=== PATIENT | male | born 1940 | race Caucasian/White ===

== ENCOUNTER 2022-06-12 11:59 | Inpatient (IN) | payer MEDICARE, SELFPAY ==
--- NOTE | ~2022-06-12 | XR_ITS ---
EXAMINATION: XR surgery orthopedic DATE: 06/14/2022 14:48 INDICATION: Proximal right femur fracture TECHNIQUE: 3 fluoroscopic images of the right hip were obtained during procedure performed by Dr. Adrian cobb. Radiologist was not present for the imaging or procedure. The amount of fluoroscopy time used d uring this procedure was 0.9 minutes. COMPARISON: Pelvis radiographs dated 06/12/2022 FINDINGS: Interval fixation of a subcapital fracture of the proximal right femur with 3 cannulated lag screws w hich are in expected position with the distal tips not projecting beyond the articular cortical trina n. Alignment remains near-anatomic with unchanged mild lateral impaction. Mild osteoarthritis at the right hip. No new fractures identified. IMPRESSION: 1. Near-anatomic alignment post plate-screw fixation of a subcapital fracture of the proximal right f emur. Reviewed, dictated and finalized at location A. IMPRESSION: 1. Near-anatomic alignment post plate-screw fixation of a subcapital fracture o f the proximal right femur.
--- NOTE | ~2022-06-12 | CT_ITS ---
EXAMINATION: CT brain wo con DATE: 06/12/2022 14:16 INDICATION: Fall with head and neck injury TECHNIQUE: Computed tomography (CT) of the head was performed without intravenous contrast. Sagittal and coronal reconstructions were performed. The mA was adjusted according to patient size. Iterative reconstruction technique was employed. The dose-length product was 1286.33 mGy-cm. COMPARISON: None FINDINGS: 1 computed patient resulting in the significant motion artifact on the initial sequence. Imaging was repeated twice again with motion artifact but in different locations resulting in adequate imaging of the entire brain on at least one of the 3 sequences of imaging. No fracture. No acute intracranial hemorrhage, acute infarction or abnormal extra axial fluid collect ion. There is mild scattered white matter hypoattenuation consistent with chronic small vessel ischem ic disease. Symmetric prominence of the sulci and ventricles consistent with mild to moderate age-sukh ropriate diffuse cerebral volume loss. No mass/mass effect. Mild mucosal thickening the bilateral eth moid sinuses. The orbits and mastoid air cells are normal. Intracranial calcified cerebral atheroscle rosis is noted. IMPRESSION: 1. No fracture or acute intracranial process. 2. Age-related changes including mild to moderate diffuse volume loss and mild scattered white matter hypoattenuation consistent with chronic small vessel ischemic disease. Reviewed, dictated and finalized at location A. IMPRESSION: 1. No fracture or acute intracranial process. 2. Age-related changes including mild to moderate diffuse volume loss and mild scattered white matter hypoattenuation consistent with chronic small vessel isc hemic disease.
--- NOTE | ~2022-06-12 | XR_ITS ---
EXAMINATION: XR pelvis 1-2V DATE: 06/12/2022 14:16 INDICATION: Hip pain post fall TECHNIQUE: An anteroposterior view of the pelvis was obtained. COMPARISON: None. FINDINGS: Nondisplaced transcervical fracture of the proximal right femur with some lateral impaction resulting in mild valgus angulation. No other fractures identified. Mild bilateral hip osteoarthritis. Moderat e bilateral sacral iliac osteoarthritis. Suture line in the right lower quadrant of the abdomen. Larg e ball of stool at the rectum consistent with fecal impaction. IMPRESSION: 1. Mild lateral angulation and impaction of a nondisplaced transcervical fracture of the proximal rig ht femur Reviewed, dictated and finalized at location A. IMPRESSION: 1. Mild lateral angulation and impaction of a nondisplaced transcervical fractu re of the proximal right femur
--- NOTE | ~2022-06-12 | CT_ITS ---
EXAMINATION: CT cervical spine wo con DATE: 06/12/2022 14:16 INDICATION: Head and neck injury post fall. TECHNIQUE: Computed tomography (CT) of the cervical spine was performed without intravenous contrast. Automated exposure control and iterative reconstruction technique were employed. The dose-length pro duct was 363.45 mGy-cm. COMPARISON: None FINDINGS: Mild lower cervical levocurvature. Sagittal alignment is normal. Vertebral body heights are normal. M oderate disc height loss at C5-C6 and C6-C7. Mild disc height loss at the remaining cervical levels. Multilevel moderate to severe cervical uncovertebral osteoarthritis. Severe facet osteoarthritis on t he left at C2-C3 through C3-C4 and bilaterally at T2-T3. Mild to moderate facet osteoarthritis at the remainder of the cervical and visualized upper thoracic spine. Disc bulges at C4-C5 and posterior di sc osteophyte complexes at C5-C6 and C6-C7 resulting in mild central canal stenosis. Moderate neural foraminal stenosis on the left at C3-C4 and mild neural foraminal stenosis at a few additional levels on both the left and right. Likely benign 1.3 cm left thyroid nodule. Calcified inferior left jugula r chain lymph nodes consistent with old granulomatous disease. Cervical soft tissues are otherwise un remarkable. IMPRESSION: 1. Moderate cervical spondylosis. No acute osseous abnormalities. Reviewed, dictated and finalized at location A.
--- NOTE | ~2022-06-12 | XR_ITS ---
EXAMINATION: XR hip RT min 2V DATE: 06/12/2022 13:18 INDICATION: Right hip pain post fall TECHNIQUE: Anteroposterior and cross-table lateral views of the right hip were obtained. COMPARISON: None. FINDINGS: Transcervical fracture of the proximal right femur with mild posterolateral angulation with mild asso ciated posterolateral impaction. Right femoral head remains normally located in the right acetabulum with mild osteoarthritis. Moderate osteoarthritis at the bilateral sacroiliac joints. Suture line in the right lower quadrant and surgical clip in the left lower quadrant. 9 cm ball of stool at the rect um. IMPRESSION: 1. Mildly impacted nondisplaced transcervical fracture of the proximal right femur with mild posterol ateral angulation. Reviewed, dictated and finalized at location A. IMPRESSION: 1. Mildly impacted nondisplaced transcervical fracture of the proximal right fe mur with mild posterolateral angulation.
--- NOTE | ~2022-06-12 | XR_ITS ---
EXAMINATION: XR chest 1V DATE: 06/12/2022 13:18 INDICATION: Fall. Chest pain. TECHNIQUE: AP view of the chest was obtained. COMPARISON: None FINDINGS: Calcified nodule at the left lung base consistent with old granulomatous disease. No other airspace o pacities, pulmonary edema, pleural effusion or pneumothorax. The cardiomediastinal silhouette is norm al. Cholecystectomy clips in right upper quadrant. IMPRESSION: 1. No acute cardiopulmonary disease. Reviewed, dictated and finalized at location A.
[2022-06-12 12:06] VITALS: BP 137/85; PULSE 104; RESP 14; TEMP 36.9; O2SAT 97
--- NOTE | 2022-06-12 13:28 | ED.FALL ---
HPI - Fall General Chief Complaint: Fall Stated Complaint: Fall, R hip pain Time Seen by Provider: 06/12/22 13:21 History of Present Illness HPI Narrative: Patient states that he was eating a banana, dropped the peel the ground, and slipped on it and landed on his hip, he is endorsing pain in his right hip. Denies any pain anywhere else. I spoke with his family and they inform me there were no banana peels anywhere in the vicinity (though he does love bananas), they had stopped at his house and found him on the ground; they had seen him earlier in the day so are sure he hadn't been on the ground for very long. Unsure how or why he fell. Related Data Home Medications Medication Instructions Recorded Confirmed amlodipine 10 mg tablet 10 mg PO DAILY 11/16/20 03/22/21 atorvastatin 10 mg tablet 10 mg PO DAILY 11/16/20 03/22/21 cyanocobalamin (vitamin B-12) 1,000 mcg PO DAILY 11/16/20 03/22/21 1,000 mcg capsule donepezil 5 mg tablet 5 mg PO QHS 11/16/20 03/22/21 levothyroxine 50 mcg capsule 50 mcg PO DAILY 11/16/20 03/22/21 olanzapine 2.5 mg tablet 2.5 mg PO DAILY 11/16/20 03/22/21 famotidine 20 mg tablet 20 mg PO DAILY 03/22/21 03/22/21 loratadine 10 mg capsule 10 mg PO DAILY 03/22/21 03/22/21 psyllium husk 0.4 gram capsule 0.4 g PO DAILY 03/22/21 03/22/21 (Metamucil) Allergies Allergy/AdvReac Type Severity Reaction Status Date / Time Penicillins Allergy Intermediate Hives Verified 09/22/21 14:33 Macrolide Antibiotics AdvReac Unknown Hives / Verified 09/22/21 14:33 Red Face Review of Systems Review of Systems: CONST: No fever. HEENT: No sore throat C/V: No chest pain RESP: No cough GI: No nausea/vomiting : No dysuria. 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 NECK: No midline neck tenderness EYES: EOMI, conjunctiva normal ENT: Hearing grossly intact LUNGS: Nonlabored breathing. HEART: [Regular rate and rhythm] ABD: [Soft], [nontender to palpation] EXT: Normal DP pulses bilaterally, pain with palpation to right hip. No tenderness to any other extremity and full ROM SKIN: Abrasions to right elbow NEURO: [Alert. No gross focal sensory or strength deficits.] PSYCH: Normal affect, extremely pleasant Course Vital Signs Vital signs: Vital Signs Temperature 98.5 F 06/12/22 12:06 Pulse Rate 104 H 06/12/22 12:06 Respiratory Rate 14 06/12/22 12:06 Blood Pressure 137/85 06/12/22 12:06 Pulse Oximetry 97 06/12/22 12:06 Temperature 98.5 F 06/12/22 12:06 Pulse Rate 88 06/12/22 15:02 Respiratory Rate 16 06/12/22 15:02 Blood Pressure 136/84 06/12/22 15:02 Pulse Oximetry 99 06/12/22 15:02 MDM - Fall MDM Narrative Medical decision making narrative: 82-year-old male presents after a witnessed fall, he is endorsing pain in his right hip, vital signs stable and he does have tenderness to the right hip, x-ray does show a fracture, I did obtain full work-up to rule out any possible causes for fall and to rule out any further injuries and these are negative. Discussed with the patient, his family at bedside, the orthopedic surgeon on-call, and the hospitalist for admission. Lab Data Result diagrams: 06/12/22 13:51
--- NOTE | 2022-06-12 13:33 | ECG_ITS ---
Measurements Intervals [place] Rate: 69 P: 75 MO: 192 QRS: 75 QRSD: 120 T: 68 QT: 415 QTc: 448 Interpretive Statements SINUS RHYTHM RIGHT BUNDLE BRANCH BLOCK [120+ ms QRS DURATION, UPRIGHT V1, 40+ ms S IN I/aVL/V4/V5/V6] NO PREVIOUS ECG AVAILABLE FOR COMPARISON Electronically Signed On 06-12-2022 19:49:45 CDT by Lela Cervantes M.D.
[2022-06-12] MEDS: MORPHINE SULFATE (*CRX) 4 MG/ML INJ IV PUSH (13:53)
[2022-06-12 14:03] LABS: Basophils Absolute Auto 0.1 K/mm3 (0.0-0.1); Basophils Percent Auto 0.3 % (0.2-1.2); Eosinophils Absolute Auto 0.1 K/mm3 (0-0.3); Eosinophils Percent Auto 0.4 % (0-4.4); Hematocrit 40.7 % (42.0-52.0); Hemoglobin 13.4 g/dL (14.0-18.0); Immature Granulocyte Absolute 0.11 K/mm3 (0.00-0.031); Immature Granulocyte Percent A 0.7 % (0-0.5); Lymphocytes Absolute Auto 0.64 K/mm3 (0.9-3.2); Lymphocytes Percent Auto 3.8 % (18.3-44.2); Mean Corpuscular HGB Conc 32.9 g/dl (32-36); Mean Corpuscular Hemoglobin 31.2 pg (26-34); Mean Corpuscular Volume 94.9 fl (80-100); Mean Platelet Volume 9.9 fl (7.4-10.4); Monocytes Absolute Auto 1.1 K/mm3 (0.1-0.6); Monocytes Percent Auto 6.7 % (2.6-8.5); Neutrophils Absolute Auto 14.9 K/mm3 (1.3-6.7); Neutrophils Percent Auto 88.1 % (45.5-73.1); Platelet Count Result 344 k/mm3 (150-375); Red Blood Count 4.29 M/mm3 (4.6-6.20); Red Cell Distribution Width 12.5 % (11.5-14.5); White Blood Count 16.9 K/mm3 (4.5-10.0)
[2022-06-12 14:15] LABS: Anion Gap 15 mmol/L (8-16); Blood Urea Nitrogen 28 mg/dL (9-20); Carbon Dioxide 24 mmol/L (22-30); Chloride 105 mmol/L (98-107); Estimated CRCL calculation 43 ml/min; Estimated Glomerular Filt Rate 58; Glucose 120 mg/dL (65-110); Sodium 144 mmol/L (137-145)
[2022-06-12 14:26] LABS: Troponin I < 0.012 ng/mL (0.000-0.034)
--- NOTE | 2022-06-12 15:00 | PM.IMHP ---
H&P: HPI History of Present Illness Date/Time: 06/12/22 15:00 Chief Complaint: Fall. Narrative: This is a pleasant 82-year-old male with dementia, hypertension, hyperlipidemia, hypothyroidism, and remote history of carcinoid tumor who presented to the ED via EMS for evaluation after a fall. He has significant short-term memory loss and is not able to provide an accurate history and as such some of the following is supplemented via a review of his electronic medical records as well as discussions with his son Aurelio who is at bedside, with the patient's permission. The patient lives in his own home though lives on the same property as his son and [id number], who keep an eye out for him. This morning the patient seemed to be in his usual state of health when visited by his son. About an hour later the son came back for a visit at which time he found the patient lying on the floor in the kitchen, complaining of right hip pain. The patient continues to report that he slipped on a banana peel in the kitchen which caused him to fall however no banana or peel was found anywhere in the vicinity. In the emergency department he was found to have a fracture of the right hip and he is being admitted in this setting. He also sustained a skin tear to the right forearm but no other injuries. He is not certain but does not believe that he had any head trauma and he does not believe the fall was result of loss of consciousness. At the time my evaluation he has an aching discomfort in his right hip which is tolerable as long as he is not trying to move the leg. Review of Systems Review of Systems: 12 systems were reviewed. No headache, focal weakness, paresthesias. No recent cold or flu symptoms. No fever, chills, or sweats. He never complains of chest pain or shortness of breath. No known history of cardiac or pulmonary disease. Appetite has been as per usual. No vomiting or diarrhea. Except as documented, all other systems were reviewed and are negative (although limited due to his significant short-term memory loss). 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 Dementia Essential (primary) hypertension Hyperlipidemia Hypothyroidism Surgical History Surgical History (Updated 06/12/22 @ 20:11 by Chloe Paz PA-C) History of appendectomy History of resection of small bowel Carcinoid tumor completely excised decades ago. Family History Family History (Updated 06/12/22 @ 20:11 by Chloe Paz PA-C) Other Hypertension Social History Social History (Updated 06/12/22 @ 20:12 by Chloe Paz PA-C) Social History: Surrogate medical decision maker: Deejay Ibarra, son. Code status: Full code. Smoking status: Never smoker Alcohol intake: never Substance use: never Additional living arrangements comments: The patient lives in his own home in [place]. His son and [id number] have a house on the same a great. Additional occupation/education comments: Retired dentist. Spiritual care concerns: No Has the Lack of Transportation Kept You From Medical Appointments or From Getting Medications?: No Within the Past 12 Months, Were You Worried Whether Your Food Would Run Out Before You Got Money to Buy More?: Never True What is Your Housing Situation Today?: I Do Not Have Housing Are You Worried That in the Next 2 Months, You May Not Have Your Own Housing to Live In?: No Do You Have Trouble Paying Your Heating Or Electricity Bill?: No Do You Have Trouble Paying For Medicines?: No Are You Currently Unemployed and Looking for Work?: No Highest Level of Education Completed: Master's Degree or Higher Do You Have Trouble With Childcare or the Care of a Family Member?: No Meds Home Medications and Allergies Allergies Allergy/AdvReac Type Severity Reaction Status Date / Time
[2022-06-12 15:02] VITALS: BP 136/84; PULSE 88; RESP 16; O2SAT 99
[2022-06-12 15:55] VITALS: BP 144/72; PULSE 68; RESP 16; O2SAT 98
[2022-06-12 16:40] VITALS: BP 149/66; PULSE 68; RESP 16; TEMP 36.7; O2SAT 96
--- NOTE | 2022-06-12 16:40 | ADMGEN ---
This patient, Jayro Ibarra Sr., was admitted to 2 Medical Room 240-01. Patient/family oriented to hospital policies and general routines including ID bracelet, bed and alarms, visiting hours, pain management, procedures, bathroom and other care routines, personal items, smoking policy, room service/diet, and visiting hours. Information on how to activate the Rapid Response Team has been discussed. Patient/Family are encouraged to report perceived risks to care and to ask questions if they do not understand what they are told or what they should do.
[2022-06-12 16:43] VITALS: BMI 25.1
[2022-06-12 19:32] VITALS: BP 139/66; PULSE 71; RESP 18; TEMP 36.6; O2SAT 94
[2022-06-12] MEDS: SODIUM CHLORIDE 0.9% IV 1,000 ML 100 ML IV CONT (20:36)
[2022-06-12 21:59] LABS: Add Urine Microscopic? YES; Appearance Urine Cloudy (Clear); Bacteria Urine Trace /hpf; Bilirubin Urine Negative (Negative); Blood Urine Negative (Negative); Color Urine Yellow (Yellow); Glucose Urine UA Negative (Negative); Ketones Urine Trace mg/dL (Negative); Leukocyte Esterase Ur Negative LEU/UL (Negative); Mucus Urine Few /lpf; Nitrate Urine Negative (Negative); Protein Urine 2+ mg/dL (Negative); Specific Grav Ur 1.026 (1.001-1.035); Squamous Epithelial Cell Urine Rare /hpf (Few); Urobilinogen Urine Negative mg/dL (<2.0)
[2022-06-13] MEDS: MORPHINE SULFATE (*CRX) 2 MG/ML INJ 1 MG IV PUSH ×2 (00:57→10:09)
[2022-06-13 02:58] VITALS: BP 140/61; PULSE 70; RESP 18; TEMP 36.9; O2SAT 92
[2022-06-13 05:53] LABS: Hematocrit 36.6 % (42.0-52.0); Hemoglobin 11.8 g/dL (14.0-18.0); Mean Corpuscular HGB Conc 32.2 g/dl (32-36); Mean Corpuscular Hemoglobin 31.1 pg (26-34); Mean Corpuscular Volume 96.3 fl (80-100); Mean Platelet Volume 10.2 fl (7.4-10.4); Platelet Count Result 279 k/mm3 (150-375); Red Cell Distribution Width 12.5 % (11.5-14.5); White Blood Count 13.8 K/mm3 (4.5-10.0)
[2022-06-13 06:09] LABS: Alanine Aminotransferase 27 U/L (6-50); Albumin Level 3.6 g/dL (3.5-5.1); Alkaline Phosphatase 81 U/L (38-126); Anion Gap 12 mmol/L (8-16); Aspartate Amino Transferase 28 U/L (17-59); Bilirubin,Total 1.2 mg/dL (0.2-1.3); Blood Urea Nitrogen 27 mg/dL (9-20); Calcium 8.4 mg/dL (8.4-10.2); Carbon Dioxide 25 mmol/L (22-30); Chloride 105 mmol/L (98-107); Estimated CRCL calculation 42 ml/min; Estimated Glomerular Filt Rate 58; Glucose 103 mg/dL (65-110); Magnesium 1.9 mg/dL (1.6-2.3); Potassium 3.9 mmol/L (3.4-5.0); Sodium 142 mmol/L (137-145)
[2022-06-13] MEDS: SODIUM CHLORIDE 0.9% IV 1,000 ML 100 ML IV CONT ×2 (06:32→15:58)
--- NOTE | 2022-06-13 07:21 | PM.IMPN ---
Progress Note: A&P Assessment and Plan (1) Closed right hip fracture: Code(s): S72.001A - Fracture of unspecified part of neck of right femur, initial encounter for closed fracture Status: Acute Assessment and Plan: Management per Orthopedic Surgery (2) Fall from ground level: Code(s): W18.30XA - Fall on same level, unspecified, initial encounter Status: Acute Assessment and Plan: Physical and occupational therapy orders placed (3) Leukocytosis: Code(s): D72.829 - Elevated white blood cell count, unspecified Status: Acute Assessment and Plan: CXR with no pneumonia. Urine culture pending. Afebrile. Likely reactive. Will monitor fever curve. (4) Essential (primary) hypertension: Code(s): I10 - Essential (primary) hypertension Status: Acute Assessment and Plan: BP mildly elevated and there is no home medication listed for hypertension. Per chart review, was on amlodipine 10 mg po daily in the past. Will monitor for now. (5) Hyperlipidemia: Code(s): E78.5 - Hyperlipidemia, unspecified Status: Acute Assessment and Plan: No home medication listed. Will monitor. (6) Hypothyroidism: Code(s): E03.9 - Hypothyroidism, unspecified Status: Acute Assessment and Plan: No home medication listed. Will check thyroid labs. (7) Dementia: Code(s): F03.90 - Unspecified dementia, unspecified severity, without behavioral disturbance, psychotic disturbance, mood disturbance, and anxiety Status: Acute Assessment and Plan: Previously on donepizil. No home medicaton listed. Will monitor. Subjective Date/time seen: 06/13/22 07:21 Patient asks, Are you a real doctor? and continued to ask this several times even after introducing myself as the hospitalist physician who will be taking care of him along with orthopedic surgery. 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 Says he has some pain on the right hip. Review of Systems Musculoskeletal: Musculoskeletal: Reports arthralgias Exam Narrative: GENERAL: NAD, cooperative HEENT: Normocephalic, atraumatic, anicteric NECK: Supple CV: Normal S1, S2, RRR, No MRG RESP: CTAB, Normal work of breathing. EXTREMITIES: Warm and well perfused, no clubbing, cyanosis. SKIN: warm, dry and intact. NEURO: CN 2-12 grossly intact. Objective Data Vital Signs Vital Signs: Vital Signs - 24 hr 06/12/22 12:06 06/12/22 15:02 06/12/22 15:55 Temperature 36.9 C Pulse Rate 104 H 88 68 Respiratory Rate 14 16 16 Blood Pressure 137/85 136/84 144/72 H Pulse Oximetry 97 99 98 Oxygen Delivery 06/12/22 16:40 06/12/22 17:40 06/12/22 19:32 Temperature 36.7 C 36.6 C Pulse Rate 68 71 Respiratory Rate 16 18 Blood Pressure 149/66 H 139/66 Pulse Oximetry 96 94 Oxygen Delivery Room Air 06/13/22 02:58 Temperature 36.9 C Pulse Rate 70 Respiratory Rate 18 Blood Pressure 140/61 Pulse Oximetry 92 Oxygen Delivery Intake/Output Intake/Output: Intake & Output 06/10/22 06/11/22 06/12/22 06/13/22 23:59 23:59 23:59 23:59 Intake Total 0 1000 Output Total 0 300 Balance 0 700 Meds/Results Medications: Active Medications Generic Name Dose Route Start Last Admin Trade Name Freq PRN Reason Stop Dose Admin Acetaminophen 650 mg 06/12/22 20:19 Acetaminophen 325 Mg Tablet PO Q6H PRN Mild Pain (1-3) or Fever Sodium Chloride 1,000 mls @ 100 mls/hr 06/13/22 06:15 06/13/22 06:32 Normal Saline Iv IV CONT 100 mls/hr .Q10H MARLEY Administration Morphine Sulfate 1 mg 06/12/22 20:19 06/13/22 00:57 Morphine Sulfate (*Crx) 2 Mg/Ml Inj IV PUSH 1 mg Q4H PRN Administration Pain Rated 7-10 Tramadol HCl 25 mg 06/12/22 20:19 Tramadol Hcl (*Crx) 25 Mg Tablet PO Q6H PRN Pain Rated 4-6 Radiology Results: ITS Impressio
--- NOTE | 2022-06-13 08:20 | PM.CNOR ---
Assessment and Plan Assessment and plan (1) Fracture of femoral neck, closed: Qualifiers: Encounter type: initial encounter Laterality: right Qualified Code(s): S72.001A - Fracture of unspecified part of neck of right femur, initial encounter for closed fracture Code(s): S72.009A - Fracture of unspecified part of neck of unspecified femur, initial encounter for closed fracture Status: Acute Assessment and Plan: New patient evaluation for chief complaint right hip pain after fall. History, physical exam and radiographs reviewed with the patient and family present. Right hip femoral neck fracture. Discussed the condition, nature, etiology and course of natural history with the patient. Treatment options including surgical and nonoperative treatment were reviewed. Risks and benefits of each as well as alternatives reviewed. The family's questions were answered. Conservative treatment ice, compression and elevation. Discussed nonoperative and operative treatment options with the patient and family. Risks and benefits of each as well as alternatives were reviewed. All of the patient's and family's questions were answered. The risks of surgery reviewed including but not limited to: Neurovascular damage, wound complication, infection, blood clot, pulmonary embolus, stroke, myocardial infarction, and anesthetic risks up to and including . Continued pain and possible dysfunction were explained. Specific risks of the procedure including later recurrence of deformity. No guarantees were offered. If hardware used, discussed risk of failure/ breakage and possible need for removal. If complications occur, the patient understands the need for further treatment, possible further surgery. Patient and family verbalize understanding and wish to proceed. PLAN: Right hip pinning History of Present Illness HPI Consult date: 06/13/22 Requesting physician: Carola Person MD Chief complaint: fall,r hip fx Narrative: 82-year-old gentleman with loss of balance and fall on the right side. Emergency room evaluation found to have right hip fracture. Admitted for further evaluation and treatment. Review of Systems Constitutional: Constitutional: Denies fever(s) Eyes: Eyes: Denies blurry vision ENT: Reports Normal hearing present Cardiovascular: Cardiovascular: Denies chest pain and Denies dyspnea Respiratory: Respiratory: Denies dyspnea and Denies wheezing Gastrointestinal: Gastrointestinal: Denies abdominal pain Genitourinary: Genitourinary: Denies urinary urgency Musculoskeletal: Musculoskeletal: Reports as per HPI and Denies numbness Integumentary/Breasts: Skin/Breast: Denies changing lesions and Denies sores Neurologic: Reports Normal hearing present, Denies behavioral changes, Denies confusion, Denies numbness and Denies convulsions Psychiatric: Psychiatric: Denies behavioral changes, Denies confusion and Denies hallucinations Endocrine: Endocrine: Denies heat intolerance Hematologic/Lymphatic: Hematologic/Lymphatic: Denies easy bleeding Allergic/Immunologic: Allergic/Immunologic: Denies wheezing PMFSH Past Medical History Medical History (Updated 06/13/22 @ 08:22 by Sandoval Garcia MD) 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 Dementia Essential (primary) hypertension Fracture of femoral neck, closed Hyperlipidemia Hypothyroidism Surgical History Surgical History History of appendectomy History of resection of small bowel Carcinoid tumor completely excised decades ago. Family History Family History Other Hypertension Social History Social History Social History: Surrogate medical decision maker: Deejay Ibarra, son. Code status: Full code. Smoking status: Never smo
[2022-06-13 11:43] VITALS: BP 145/53; PULSE 75; RESP 16; TEMP 36.7; O2SAT 96
[2022-06-13] MEDS: traMADol HCL (*CRX) 25 MG TABLET PO (15:58)
[2022-06-13 19:40] VITALS: BP 134/73; PULSE 87; RESP 18; TEMP 36.9; O2SAT 94
[2022-06-14] VITALS (11 sets, daily range): BP systolic 129–179; BP diastolic 63–92; PULSE 70–108; RESP 12–18; TEMP 36.3–37.9; O2SAT 91–100
[2022-06-14 06:25] LABS: Basophils Percent Auto 0.3 % (0.2-1.2); Eosinophils Absolute Auto 0.3 K/mm3 (0-0.3); Eosinophils Percent Auto 2.2 % (0-4.4); Hematocrit 31.8 % (42.0-52.0); Hemoglobin 10.5 g/dL (14.0-18.0); Immature Granulocyte Absolute 0.12 K/mm3 (0.00-0.031); Immature Granulocyte Percent A 0.9 % (0-0.5); Lymphocytes Absolute Auto 0.82 K/mm3 (0.9-3.2); Lymphocytes Percent Auto 6.1 % (18.3-44.2); Mean Corpuscular Hemoglobin 30.7 pg (26-34); Mean Platelet Volume 10.3 fl (7.4-10.4); Monocytes Absolute Auto 1.2 K/mm3 (0.1-0.6); Monocytes Percent Auto 9.2 % (2.6-8.5); Neutrophils Absolute Auto 10.9 K/mm3 (1.3-6.7); Neutrophils Percent Auto 81.3 % (45.5-73.1); Platelet Count Result 268 k/mm3 (150-375); Red Blood Count 3.42 M/mm3 (4.6-6.20); Red Cell Distribution Width 12.2 % (11.5-14.5); White Blood Count 13.5 K/mm3 (4.5-10.0)
[2022-06-14 06:44] LABS: Anion Gap 11 mmol/L (8-16); Blood Urea Nitrogen 19 mg/dL (9-20); Calcium 7.8 mg/dL (8.4-10.2); Carbon Dioxide 22 mmol/L (22-30); Chloride 104 mmol/L (98-107); Estimated CRCL calculation 51 ml/min; Estimated Glomerular Filt Rate > 60; Glucose 103 mg/dL (65-110); Potassium 3.5 mmol/L (3.4-5.0); Sodium 137 mmol/L (137-145)
[2022-06-14 07:07] LABS: Free T4 Free Thyroxine 0.89 ng/mL (0.78-2.19)
--- NOTE | 2022-06-14 07:22 | PM.IMPN ---
Progress Note: A&P Assessment and Plan (1) Closed right hip fracture: Code(s): S72.001A - Fracture of unspecified part of neck of right femur, initial encounter for closed fracture Status: Acute Assessment and Plan: Management per Orthopedic Surgery (2) Fall from ground level: Code(s): W18.30XA - Fall on same level, unspecified, initial encounter Status: Acute Assessment and Plan: Physical and occupational therapy (3) Leukocytosis: Code(s): D72.829 - Elevated white blood cell count, unspecified Status: Acute Assessment and Plan: CXR with no pneumonia. Urine culture finalized negative. Afebrile. Likely reactive. Will monitor fever curve. (4) Essential (primary) hypertension: Code(s): I10 - Essential (primary) hypertension Status: Acute Assessment and Plan: BP mildly elevated and there is no home medication listed for hypertension. Per chart review, was on amlodipine 10 mg po daily in the past. Will monitor for now. (5) Hyperlipidemia: Code(s): E78.5 - Hyperlipidemia, unspecified Status: Acute Assessment and Plan: No home medication listed. Will monitor. (6) Hypothyroidism: Code(s): E03.9 - Hypothyroidism, unspecified Status: Acute Assessment and Plan: No home medication listed. Labs euthyroid. Will monitor. (7) Dementia: Code(s): F03.90 - Unspecified dementia, unspecified severity, without behavioral disturbance, psychotic disturbance, mood disturbance, and anxiety Status: Acute Assessment and Plan: Previously on donepizil. No home medicaton listed. Will monitor. Subjective Date/time seen: 06/14/22 07:22 Patient says he is having pain in his right hip and would like some pain medication. Review of Systems Musculoskeletal: Musculoskeletal: Reports arthralgias Exam Narrative: GENERAL: NAD, cooperative HEENT: Normocephalic, atraumatic, anicteric NECK: Supple CV: Normal S1, S2, RRR, No MRG RESP: CTAB, Normal work of breathing. EXTREMITIES: Warm and well perfused, no clubbing, cyanosis. SKIN: warm, dry and intact. NEURO: CN 2-12 grossly intact. Objective Data Vital Signs Vital Signs: Vital Signs - 24 hr 06/13/22 11:43 06/13/22 19:40 06/14/22 03:24 Temperature 36.7 C 36.9 C 36.8 C Pulse Rate 75 87 90 Respiratory Rate 16 18 18 Blood Pressure 145/53 H 134/73 144/75 H Pulse Oximetry 96 94 95 Intake/Output Intake/Output: Intake & Output 06/11/22 06/12/22 06/13/22 06/14/22 23:59 23:59 23:59 23:59 Intake Total 0 3360 0 Output Total 0 400 300 Balance 0 2960 -300 Meds/Results Medications: Active Medications Generic Name Dose Route Start Last Admin Trade Name Freq PRN Reason Stop Dose Admin Acetaminophen 650 mg 06/12/22 20:19 Acetaminophen 325 Mg Tablet PO Q6H PRN Mild Pain (1-3) or Fever Sodium Chloride 1,000 mls @ 100 mls/hr 06/13/22 06:15 06/13/22 15:58 Normal Saline Iv IV CONT 100 mls/hr .Q10H MARLEY Administration Morphine Sulfate 1 mg 06/12/22 20:19 06/13/22 10:09 Morphine Sulfate (*Crx) 2 Mg/Ml Inj IV PUSH 1 mg Q4H PRN Administration Pain Rated 7-10 Tramadol HCl 25 mg 06/12/22 20:19 06/13/22 15:58 Tramadol Hcl (*Crx) 25 Mg Tablet PO 25 mg Q6H PRN Administration Pain Rated 4-6 Radiology Results: ITS Impressions Chest X-Ray 06/12/22 13:48 IMPRESSION: 1. No acute cardiopulmonary disease. Hip X-Ray 06/12/22 13:48 IMPRESSION: 1. Mildly impacted nondisplaced transcervical fracture of the proximal right femur with mild posterolateral angulation. Head CT 06/12/22 14:18 IMPRESSION: 1. No fracture or acute intracranial process. 2. Age-related changes including mild to moderate diffuse volume loss and mild scattered white matter hypoattenuation consistent with chronic small vessel
--- NOTE | 2022-06-14 07:50 | WPDHPUPDATE1 ---
History and Physical Update Update Date/Time: 06/14/22 07:50 History and Physical has been reviewed, including an updated exam of the patient. There are NO changes in the patient's condition. Risks, benefits, and alternatives have been discussed and questions answered. Patient and family agrees to proceed with procedure. Plan right hip pinning.
[2022-06-14] MEDS: POTASSIUM CHLORIDE INJ 40 MEQ in SODIUM CHLORIDE 0.9% IV 500 ML 130 MEQ IVPB (08:15)
[2022-06-14] MEDS: MORPHINE SULFATE (*CRX) 2 MG/ML INJ 1 MG IV PUSH ×3 (08:25→19:19)
--- NOTE | 2022-06-14 08:27 | WPDANESEPPF ---
Anes - Initial Pre Proc Eval Procedure: Operation Date: 06/14/22 14:00 Proposed Procedures p Right Hip T[place]ani - Sandoval Garcia MD Date/Time: 06/14/22 08:27 Surgeon: Igor Herrera MD Pre Op Diagnosis: fall,r hip fx Patient Data Age: 82 Gender: M Height: 1.75 m Weight: 71 kg Last Vital Signs Temp 36.8 C 06/14/22 03:24 Pulse 90 06/14/22 03:24 Resp 18 06/14/22 03:24 BP 144/75 H 06/14/22 03:24 Pulse Ox 95 06/14/22 03:24 O2 Del Method Room Air 06/12/22 17:40 Allergies Allergy/AdvReac Type Severity Reaction Status Date / Time Penicillins Allergy Intermediate Hives Verified 09/22/21 14:33 Macrolide Antibiotics AdvReac Unknown Hives / Verified 09/22/21 14:33 Red Face Home Medications Medication Instructions Recorded Confirmed Type acetaminophen 325 mg tablet (Mapap 650 mg PO Q6H PRN Mild Pain (1-3) 06/16/22 Rx (acetaminophen)) #30 tabs aspirin 325 mg tablet,delayed 325 mg PO Q12HR 28 days #56 tabs 06/16/22 Rx release polyethylene glycol 3350 17 gram 17 g PO QAM #30 ea 06/16/22 Rx oral powder packet (Miralax) sennosides 8.6 mg-docusate sodium 2 tab-cap PO BID #30 tabs 06/16/22 Rx 50 mg tablet (Senokot-S) tramadol 50 mg tablet 25 mg PO Q6H PRN pain #14 tabs 06/16/22 Rx Laboratory Tests 06/14/22 06/14/22 06/14/22 05:11 05:11 05:11 WBC 13.5 K/mm3 H K/mm3 (4.5-10.0) RBC 3.42 M/mm3 L M/mm3 (4.6-6.20) Hgb 10.5 g/dL L g/dL (14.0-18.0) Hct 31.8 % L % (42.0-52.0) MCV 93.0 fl fl (80-100) MCH 30.7 pg pg (26-34) MCHC 33.0 g/dl g/dl (32-36) RDW 12.2 % % (11.5-14.5) Plt Count 268 k/mm3 k/mm3 (150-375) MPV 10.3 fl fl (7.4-10.4) Immature Gran % (Auto) 0.9 % H % (0-0.5) Neut % (Auto) 81.3 % H % (45.5-73.1) Lymph % (Auto) 6.1 % L % (18.3-44.2) [place] % (Auto) 9.2 % H % (2.6-8.5) Eos % (Auto) 2.2 % % (0-4.4) Baso % (Auto) 0.3 % % (0.2-1.2) Lymph # (Auto) 0.82 K/mm3 L K/mm3 (0.9-3.2) [place] # (Auto) 1.2 K/mm3 H K/mm3 (0.1-0.6) Eos # (Auto) 0.3 K/mm3 K/mm3 (0-0.3) Baso # (Auto) 0.0 K/mm3 K/mm3 (0.0-0.1) Abs Immat Gran (auto) 0.12 K/mm3 H K/mm3 (0.00-0.031) Absolute Neuts (auto) 10.9 K/mm3 H K/mm3 (1.3-6.7) Absolute Nucleated RBC 0.0 K/mm3 K/mm3 (0.0-0.012) Nucleated RBC % 0.0 % % (0.0-0.2) Sodium 137 mmol/L mmol/L (137-145) Potassium 3.5 mmol/L mmol/L (3.4-5.0) Chloride 104 mmol/L mmol/L (98-107) Carbon Dioxide 22 mmol/L mmol/L (22-30) Anion Gap 11 mmol/L mmol/L (8-16) BUN 19 mg/dL mg/dL (9-20) Creatinine 1.00 mg/dL mg/dL (0.7-1.3) Estim Creat Clear Calc 51 ml/min ml/min Estimated GFR > 60 (59 - ) Glucose 103 mg/dL mg/dL (65-110) Calcium 7.8 mg/dL L mg/dL (8.4-10.2) TSH 3.590 uIU/mL uIU/mL (0.465-4.680) Free T4 0.89 ng/mL ng/mL (0.78-2.19) ECG: Date of Service: 06/12/22 Procedure(s): CA 12 lead EKG Accession Number(s): [id number] cc: ~ ? Measurements Intervals? [place]? Rate: ? 69 ? P:? 75 NC: ? 192? QRS:? 75 QRSD: ? 120? T:? 68 QT: ? 415? QTc:? 448? Interpretive Statements SINUS RHYTHM RIGHT BUNDLE BRANCH BLOCK? [120+ ms QRS DURATION, UPRIGHT V1, 40+ ms S IN I/aVL/V4/V5/V6] NO PREVIOUS ECG AVAILABLE FOR COMPARISON Electronically Signed On 06-12-2022 19:49:45 CDT by Lela Cervantes M.D. Patient hx anesthesia problems: none Family hx anesthesia
[2022-06-14] MEDS: LACTATED RINGERS 1,000 ML 30 ML IV CONT (13:34)
[2022-06-14] MEDS: TRANEXAMIC ACID 1,000MG/ISO100 1,000 MG/100 ML BAG 200 MG IVPB (13:35)
[2022-06-14] MEDS: ceFAZolin 2 GM/D5W 50 ML 2 GM/50 ML BAG IVPB (13:50)
[2022-06-14] MEDS: BUPIVACAINE/EPINEPHRINE 0.25% 50 ML VIAL 30 ML INFILTRATE (14:27)
--- NOTE | 2022-06-14 15:02 | P.OP_ITS ---
Procedure Note - Detailed Date of Procedure 06/14/22 Pre-op Diagnosis fall,r hip fx Post-op Diagnosis Same Procedure Performed Right hip percutaneous pin fixation Surgeon Sandoval Garcia MD Athletic Agent 1st speech pathologist assistant Anesthesia General Indications 82-year-old gentleman with dementia fell on the right side and sustained right hip fracture. Family desires operative treatment. Description of Procedure Informed consent signed. Extremity marked in preoperative holding area. Patient received intravenous antibiotics. Brought to operating room and underwent general anesthetic by the Anesthesia Team. Positioned supine on the fracture table. Right leg placed into longitudinal traction. Left leg extended out of field. Image intensification brought in and confirm reduction of fracture. Right hip prepped and draped in usual sterile surgical fashion using ChloraPrep skin solution. Image intensification used to guide the starting position and a longitudinal incision made with 10 blade knife over the lateral proximal femur. Blunt dissection carried down to the lateral femur. Bleeding controlled with electrocautery. First guide pin placed in the inferior center position of the femoral neck and head. Confirmed with image intensification. Two subsequent pins placed superior and anterior and superior and posterior to the 1st pin to create an inverted triangle type pattern. Pins confirmed with image intensification. Length of screw measured, reaming performed. Appropriate size screw placed with good compression and fixation noted for all 3 pins. Guide pins removed. Final image intensification confirmed reduction of fracture and placement of hardware. Wound thoroughly irrigated with antibiotic solution. Fascia repaired with 2 Vicryl interrupted sutures. Subcutaneous tissue repaired with 3 0 Monocryl interrupted suture. Sterile dressing applied. Patient woken from anesthesia, extubated and returned to recovery room in stable condition. All sponge needle and instrument counts correct at the end of the case. Implants Arthrex 6.7 mm screw x3 Estimated Blood Loss 10 Tourniquet Time 0 Urine Output 240 Drains No Packing No Pathology None sent Complications None Condition Stable Disposition PACU
[2022-06-14] MEDS: KCL 20 MEQ/D5/0.45% SOD CHL 1,000 ML 80 ML IV CONT (16:38)
[2022-06-14] MEDS: SENNA/DOCUSATE SODIUM TABLET 2 TAB PO (17:11)
[2022-06-14] MEDS: ASPIRIN 325 MG ENTERIC TABLET PO (20:50)
[2022-06-14] MEDS: ACETAMINOPHEN 325 MG TABLET 650 MG PO (20:50)
[2022-06-15 01:51] VITALS: BP 126/65; PULSE 63; RESP 16; TEMP 36.7; O2SAT 93
[2022-06-15] MEDS: ACETAMINOPHEN 325 MG TABLET 650 MG PO (05:38)
[2022-06-15 05:41] LABS: Basophils Percent Auto 0.2 % (0.2-1.2); Eosinophils Absolute Auto 0.1 K/mm3 (0-0.3); Eosinophils Percent Auto 0.6 % (0-4.4); Hematocrit 34.8 % (42.0-52.0); Hemoglobin 11.4 g/dL (14.0-18.0); Immature Granulocyte Absolute 0.18 K/mm3 (0.00-0.031); Lymphocytes Absolute Auto 0.92 K/mm3 (0.9-3.2); Lymphocytes Percent Auto 5.3 % (18.3-44.2); Mean Corpuscular HGB Conc 32.8 g/dl (32-36); Mean Corpuscular Hemoglobin 31.3 pg (26-34); Mean Corpuscular Volume 95.6 fl (80-100); Mean Platelet Volume 10.2 fl (7.4-10.4); Monocytes Absolute Auto 1.4 K/mm3 (0.1-0.6); Monocytes Percent Auto 8.1 % (2.6-8.5); Neutrophils Absolute Auto 14.6 K/mm3 (1.3-6.7); Neutrophils Percent Auto 84.8 % (45.5-73.1); Platelet Count Result 301 k/mm3 (150-375); Red Blood Count 3.64 M/mm3 (4.6-6.20); Red Cell Distribution Width 12.1 % (11.5-14.5); White Blood Count 17.3 K/mm3 (4.5-10.0)
[2022-06-15 05:51] VITALS: BP 136/73; PULSE 75; RESP 18; TEMP 36.6; O2SAT 96
[2022-06-15 05:56] LABS: Anion Gap 9 mmol/L (8-16); Blood Urea Nitrogen 17 mg/dL (9-20); Calcium 8.3 mg/dL (8.4-10.2); Carbon Dioxide 22 mmol/L (22-30); Chloride 105 mmol/L (98-107); Estimated CRCL calculation 47 ml/min; Estimated Glomerular Filt Rate > 60; Glucose 95 mg/dL (65-110); Potassium 3.7 mmol/L (3.4-5.0); Sodium 136 mmol/L (137-145)
--- NOTE | 2022-06-15 07:53 | WPDANESPN ---
Anes - Prog Note Post-Op Date/Time: 06/15/22 07:53 Vital Signs: Last Vital Signs Temp 36.7 C 06/15/22 01:51 Pulse 63 06/15/22 01:51 Resp 16 06/15/22 01:51 BP 126/65 06/15/22 01:51 Pulse Ox 93 06/15/22 01:51 O2 Del Method Room Air 06/14/22 20:20 O2 Flow Rate 8 06/14/22 15:05 Pain Score (VAS): 0 I/O: Intake & Output 06/14/22 06/14/22 06/15/22 15:59 23:59 07:59 Intake Total 800 710 250 Output Total 680 650 400 Balance 120 60 -150 Laboratory Tests 06/15/22 05:05 06/15/22 05:05 06/14/22 06/15/22 06/15/22 13:33 05:05 05:05 WBC 17.3 H RBC 3.64 L Hgb 11.4 L Hct 34.8 L MCV 95.6 MCH 31.3 MCHC 32.8 RDW 12.1 Plt Count 301 MPV 10.2 Immature Gran % (Auto) 1.0 H Neut % (Auto) 84.8 H Lymph % (Auto) 5.3 L [place] % (Auto) 8.1 Eos % (Auto) 0.6 Baso % (Auto) 0.2 Lymph # (Auto) 0.92 [place] # (Auto) 1.4 H Eos # (Auto) 0.1 Baso # (Auto) 0.0 Abs Immat Gran (auto) 0.18 H Absolute Neuts (auto) 14.6 H Absolute Nucleated RBC 0.0 Nucleated RBC % 0.0 Sodium 136 L Potassium 3.7 Chloride 105 Carbon Dioxide 22 Anion Gap 9 BUN 17 Creatinine 1.10 Estim Creat Clear Calc 47 Estimated GFR > 60 Glucose 95 Calcium 8.3 L Blood Type O Positive Antibody Screen Positive Antibody Identification Pending Antigen Identification Pending ERWIN, IgG Interpret Not Performed ERWIN, Poly Interpret Negative EWRIN, Complement Interp Not Performed Microbiology 06/12/22 21:47 Urine Clean Catch Urine Culture - Final Patient Feedback: Patient satisfied with anesthetic care.
--- NOTE | 2022-06-15 08:24 | PM.PNORT ---
Progress Note: A&P Assessment and Plan (1) Fracture of femoral neck, closed: Qualifiers: Encounter type: subsequent encounter Laterality: right Fracture healing: with routine healing Qualified Code(s): S72.001D - Fracture of unspecified part of neck of right femur, subsequent encounter for closed fracture with routine healing Code(s): S72.009A - Fracture of unspecified part of neck of unspecified femur, initial encounter for closed fracture Status: Acute Assessment and Plan: Postoperative day 1 right hip pinning. PT/OT with weight-bearing as tolerated. May be difficult to rehab given dementia. Disposition when medically stable. Subjective Subjective Date/Time Seen: 06/15/22 08:24 Post Op day: 1 Principal diagnosis: Right femoral neck fracture Interval history: disoriented. No complaints. Exam Const: General: comfortable; No acute distress Resp: Effort & Inspection: normal respiratory effort and no audible wheezes Extrem: Right lower extremity: lower leg ( Negative Homans sign), ankle Details: normal ROM ( dorsiflexion and plantar flexion intact) and foot Details: vascular exam Details: dorsalis pedis pulse present and normal capillary refill, tendon exam Details: active flexion normal and active extension normal and motor-sensory exam Details: light-touch normal Location: in all toes; no edema Left lower extremity: normal to inspection, ankle Details: normal ROM and foot Details: vascular exam Details: dorsalis pedis pulse present and normal capillary refill and motor-sensory exam light-touch normal in all toes; no edema Other: Right hip dressing clean and dry. Muscle soft. Good capillary refill. Objective Data Vital Signs Vital Signs: Vital Signs - 24 hr 06/14/22 13:39 06/14/22 14:53 06/14/22 15:05 Temperature 100.2 F H 98.0 F Pulse Rate 84 87 70 Respiratory Rate 16 12 16 Blood Pressure 166/79 H 130/85 139/67 Pulse Oximetry 97 96 100 Oxygen Delivery Room Air Simple Face Mask Simple Face Mask Oxygen Flow Rate 8 8 06/14/22 15:20 06/14/22 15:35 06/14/22 16:06 Temperature 98.1 F Pulse Rate 70 78 75 Respiratory Rate 14 18 16 Blood Pressure 129/63 130/70 141/69 H Pulse Oximetry 100 93 91 Oxygen Delivery Room Air Room Air Oxygen Flow Rate 06/14/22 16:21 06/14/22 16:51 06/14/22 18:57 Temperature 98.3 F 98.3 F 97.4 F L Pulse Rate 73 74 108 H Respiratory Rate 16 16 16 Blood Pressure 144/76 H 159/66 H 179/92 H Pulse Oximetry 92 93 96 Oxygen Delivery Oxygen Flow Rate 06/14/22 22:16 06/14/22 20:20 06/15/22 01:51 Temperature 98.1 F 98.0 F Pulse Rate 80 63 Respiratory Rate 16 16 Blood Pressure 138/73 126/65 Pulse Oximetry 93 93 Oxygen Delivery Room Air Oxygen Flow Rate 06/15/22 05:51 Temperature 97.9 F Pulse Rate 75 Respiratory Rate 18 Blood Pressure 136/73 Pulse Oximetry 96 Oxygen Delivery Oxygen Flow Rate Intake/Output Intake/Output: Intake & Output 06/12/22 06/13/22 06/14/22 06/15/22 23:59 23:59 23:59 23:59 Intake Total 0 3360 1510 250 Output Total 0 400 1630 400 Balance 0 2960 -120 -150 Meds/Results Medications: Active Medications Generic Name Dose Route Start Last Admin Trade Name Freq PRN Reason Stop Dose Admin Acetaminophen 650 mg 06/12/22 20:19 06/15/22 05:38 Acetaminophen 325 Mg Tablet PO 650 mg Q6H PRN Administration Mild Pain (1-3) or Fever Aspirin 325 mg 06/14/22 21:00 06/14/22 20:50 Aspirin 325 Mg Enteric Tablet PO 325 mg Q12HR MARLEY Administration Cefazolin Sodium 1 gm in 50 mls @ 100 mls/hr 06/14/22 21:00 06/15/22 06:07 Ancef 1 Gm/D5w 50 Ml Pm IVPB 06/15/22 13:29 Infused Q8H MARLEY Infusion Ibuprofen 800 mg in 200 mls @ 400 mls/hr 06/14/22 16:06 Caldolor 800 Mg/200 Ml IVPB Q6H PRN Pain Rated 4-6 Morphine Sulfate 1 mg 06/12/22 20:19 06/14/22 19:19 Morphine Sulfate (*Crx) 2 Mg/Ml Inj IV PUSH 1 mg Q4H PRN Administration
[2022-06-15] MEDS: SENNA/DOCUSATE SODIUM TABLET 2 TAB PO ×2 (08:36→17:18)
[2022-06-15] MEDS: ASPIRIN 325 MG ENTERIC TABLET PO ×2 (08:36→20:28)
[2022-06-15] MEDS: polyethylene glycoL 3350 17 GM POWD.PACK PO (08:36)
[2022-06-15] MEDS: traMADol HCL (*CRX) 25 MG TABLET PO ×2 (11:00→17:18)
[2022-06-15 11:09] VITALS: BP 140/70; PULSE 74; RESP 18; TEMP 36.7; O2SAT 99
--- NOTE | 2022-06-15 12:41 | PM.IMPN ---
Progress Note: A&P Assessment and Plan (1) Closed right hip fracture: Code(s): S72.001A - Fracture of unspecified part of neck of right femur, initial encounter for closed fracture Status: Acute Assessment and Plan: Management per Orthopedic Surgery 06/15/2022 interval history: patient is 82-year-old male status post fall and fracture of right hip was seen by orthopedic surgeon had ORIF postop day 1. patient states pain with weight-bearing, seen by is orthopedic surgeon recommended patient may work with physical therapy and weight-bearing as tolerated however patient remains disoriented with dementia will continue to monitor and further recommendation to follow. (2) Fall from ground level: Code(s): W18.30XA - Fall on same level, unspecified, initial encounter Status: Acute Assessment and Plan: Physical and occupational therapy (3) Leukocytosis: Code(s): D72.829 - Elevated white blood cell count, unspecified Status: Acute Assessment and Plan: CXR with no pneumonia. Urine culture finalized negative. Afebrile. Likely reactive. Will monitor fever curve. (4) Essential (primary) hypertension: Code(s): I10 - Essential (primary) hypertension Status: Acute Assessment and Plan: BP mildly elevated and there is no home medication listed for hypertension. Per chart review, was on amlodipine 10 mg po daily in the past. Will monitor for now. (5) Hyperlipidemia: Code(s): E78.5 - Hyperlipidemia, unspecified Status: Acute Assessment and Plan: No home medication listed. Will monitor. (6) Hypothyroidism: Code(s): E03.9 - Hypothyroidism, unspecified Status: Acute Assessment and Plan: No home medication listed. Labs euthyroid. Will monitor. (7) Dementia: Code(s): F03.90 - Unspecified dementia, unspecified severity, without behavioral disturbance, psychotic disturbance, mood disturbance, and anxiety Status: Acute Assessment and Plan: Previously on donepizil. No home medicaton listed. Will monitor. Subjective Date/time seen: 06/15/22 12:41 06/15/2022 interval history: patient is 82-year-old male status post fall and fracture of right hip was seen by orthopedic surgeon had ORIF postop day 1. patient states pain with weight-bearing, seen by is orthopedic surgeon recommended patient may work with physical therapy and weight-bearing as tolerated however patient remains disoriented with dementia will continue to monitor and further recommendation to follow. Review of Systems Review of Systems: ROS unobtainable: Yes unobtainable due to medical condition Musculoskeletal: Musculoskeletal: Reports arthralgias Exam Narrative: GENERAL: NAD, cooperative HEENT: Normocephalic, atraumatic, anicteric NECK: Supple CV: Normal S1, S2, RRR, No MRG RESP: CTAB, Normal work of breathing. EXTREMITIES: Warm and well perfused, no clubbing, cyanosis. SKIN: warm, dry and intact. NEURO: CN 2-12 grossly intact. Objective Data Vital Signs Vital Signs: Vital Signs - 24 hr 06/14/22 13:39 06/14/22 14:53 06/14/22 15:05 Temperature 100.2 F H 98.0 F Pulse Rate 84 87 70 Respiratory Rate 16 12 16 Blood Pressure 166/79 H 130/85 139/67 Pulse Oximetry 97 96 100 Oxygen Delivery Room Air Simple Face Mask Simple Face Mask Oxygen Flow Rate 8 8 06/14/22 15:20 06/14/22 15:35 06/14/22 16:06 Temperature 98.1 F Pulse Rate 70 78 75 Respiratory Rate 14 18 16 Blood Pressure 129/63 130/70 141/69 H Pulse Oximetry 100 93 91 Oxygen Delivery Room Air Room Air Oxygen Flow Rate 06/14/22 16:21 06/14/22 16:51 06/14/22 18:57 Temperature 98.3 F 98.3 F 97.4 F L Pulse Rate 73 74 108 H Respiratory Rate 16 16 16 Blood Pressure 144/76 H 159/66 H 179/92 H Pulse Oximetry 92 93 96 Oxygen Delivery Oxygen Flow Rate 06/14/22 22:16 06/14/22 20:20
--- NOTE | 2022-06-15 13:09 | PC.NURSE ---
On 06/15/22, the student, [Agnes Burks], provided care and completed [facility] documentation on this patient. I have reviewed the student's documentation and agree with the findings.
[2022-06-15 14:55] VITALS: BP 138/68; PULSE 81; RESP 16; TEMP 36.6; O2SAT 96
[2022-06-15 17:48] VITALS: BP 162/67; PULSE 69; RESP 16; TEMP 36.1; O2SAT 100
[2022-06-15 19:32] VITALS: BP 135/74; PULSE 66; RESP 16; TEMP 36.6; O2SAT 97
[2022-06-16 01:16] VITALS: BP 152/82; PULSE 88; RESP 16; TEMP 36.7; O2SAT 97
[2022-06-16 05:25] LABS: Basophils Percent Auto 0.3 % (0.2-1.2); Eosinophils Absolute Auto 0.7 K/mm3 (0-0.3); Eosinophils Percent Auto 5.2 % (0-4.4); Hematocrit 31.2 % (42.0-52.0); Hemoglobin 10.5 g/dL (14.0-18.0); Immature Granulocyte Absolute 0.19 K/mm3 (0.00-0.031); Immature Granulocyte Percent A 1.5 % (0-0.5); Lymphocytes Absolute Auto 0.88 K/mm3 (0.9-3.2); Lymphocytes Percent Auto 6.9 % (18.3-44.2); Mean Corpuscular HGB Conc 33.7 g/dl (32-36); Mean Corpuscular Hemoglobin 30.8 pg (26-34); Mean Corpuscular Volume 91.5 fl (80-100); Mean Platelet Volume 10.1 fl (7.4-10.4); Monocytes Absolute Auto 1.1 K/mm3 (0.1-0.6); Monocytes Percent Auto 8.6 % (2.6-8.5); Neutrophils Absolute Auto 9.9 K/mm3 (1.3-6.7); Neutrophils Percent Auto 77.5 % (45.5-73.1); Platelet Count Result 290 k/mm3 (150-375); Red Blood Count 3.41 M/mm3 (4.6-6.20); Red Cell Distribution Width 12.1 % (11.5-14.5); White Blood Count 12.8 K/mm3 (4.5-10.0)
[2022-06-16 05:35] LABS: Anion Gap 8 mmol/L (8-16); Blood Urea Nitrogen 19 mg/dL (9-20); Calcium 7.8 mg/dL (8.4-10.2); Carbon Dioxide 22 mmol/L (22-30); Chloride 105 mmol/L (98-107); Estimated CRCL calculation 51 ml/min; Estimated Glomerular Filt Rate > 60; Glucose 98 mg/dL (65-110); Potassium 3.9 mmol/L (3.4-5.0); Sodium 135 mmol/L (137-145)
[2022-06-16 06:14] VITALS: BP 162/70; PULSE 86; RESP 16; TEMP 36.6; O2SAT 96
[2022-06-16] MEDS: ASPIRIN 325 MG ENTERIC TABLET PO (08:46)
[2022-06-16] MEDS: SENNA/DOCUSATE SODIUM TABLET 2 TAB PO (08:46)
[2022-06-16] MEDS: polyethylene glycoL 3350 17 GM POWD.PACK PO (08:46)
[2022-06-16] MEDS: traMADol HCL (*CRX) 25 MG TABLET PO ×2 (08:47→14:35)
--- NOTE | 2022-06-16 09:39 | PM.PNORT ---
Progress Note: A&P Assessment and Plan (1) Fracture of femoral neck, closed: Qualifiers: Encounter type: subsequent encounter Laterality: right Fracture healing: with routine healing Qualified Code(s): S72.001D - Fracture of unspecified part of neck of right femur, subsequent encounter for closed fracture with routine healing Code(s): S72.009A - Fracture of unspecified part of neck of unspecified femur, initial encounter for closed fracture Status: Acute Assessment and Plan: POD #2: Right hip pinning. PT/OT with weight-bearing as tolerated. May be difficult to rehab given dementia. DVT prevention. Pain control. Ice. SCDs. Incentive spirometry. Disposition: SNF when medically stable Subjective Subjective Date/Time Seen: 06/16/22 09:39 Post Op day: 2 Principal diagnosis: Right femoral neck fracture Interval history: POD #2: Right Hip Pinning No complaints. Confused. Does not answer questions appropriately. Review of Systems Review of Systems: All systems reviewed & are unremarkable except as noted in HPI and below Exam Const: General: comfortable; No acute distress Resp: Effort & Inspection: normal respiratory effort and no audible wheezes Extrem: Right lower extremity: lower leg ( Negative Homans sign), ankle Details: normal ROM ( dorsiflexion and plantar flexion intact) and foot Details: vascular exam Details: dorsalis pedis pulse present and normal capillary refill, tendon exam Details: active flexion normal and active extension normal and motor-sensory exam Details: light-touch normal Location: in all toes; no edema Left lower extremity: normal to inspection, ankle Details: normal ROM and foot Details: vascular exam Details: dorsalis pedis pulse present and normal capillary refill and motor-sensory exam light-touch normal in all toes; no edema Other: Right hip dressing clean and dry. Muscle soft. Good capillary refill. Objective Data Vital Signs Vital Signs: Vital Signs - 24 hr 06/15/22 11:09 06/15/22 14:55 06/15/22 17:48 Temperature 36.7 C 36.6 C 36.1 C L Pulse Rate 74 81 69 Respiratory Rate 18 16 16 Blood Pressure 140/70 138/68 162/67 H Pulse Oximetry 99 96 100 Oxygen Delivery 06/15/22 19:32 06/15/22 20:15 06/16/22 01:16 Temperature 36.6 C 36.7 C Pulse Rate 66 88 Respiratory Rate 16 16 Blood Pressure 135/74 152/82 H Pulse Oximetry 97 97 Oxygen Delivery Room Air 06/16/22 06:14 06/16/22 08:13 Temperature 36.6 C Pulse Rate 86 Respiratory Rate 16 Blood Pressure 162/70 H Pulse Oximetry 96 Oxygen Delivery Room Air Intake/Output Intake/Output: Intake & Output 06/13/22 06/14/22 06/15/22 06/16/22 23:59 23:59 23:59 23:59 Intake Total 3360 1510 1020 350 Output Total 400 1630 650 Balance 2960 -120 370 350 Meds/Results Medications: Active Medications Generic Name Dose Route Start Last Admin Trade Name Freq PRN Reason Stop Dose Admin Acetaminophen 650 mg 06/12/22 20:19 06/15/22 05:38 Acetaminophen 325 Mg Tablet PO 650 mg Q6H PRN Administration Mild Pain (1-3) or Fever Aspirin 325 mg 06/14/22 21:00 06/16/22 08:46 Aspirin 325 Mg Enteric Tablet PO 325 mg Q12HR MARLEY Administration Ibuprofen 800 mg in 200 mls @ 400 mls/hr 06/14/22 16:06 Caldolor 800 Mg/200 Ml IVPB Q6H PRN Pain Rated 4-6 Morphine Sulfate 1 mg 06/12/22 20:19 06/14/22 19:19 Morphine Sulfate (*Crx) 2 Mg/Ml Inj IV PUSH 1 mg Q4H PRN Administration Pain Rated 7-10 Naloxone HCl 0.1 mg 06/14/22 16:06 Naloxone Hcl 0.4 Mg/Ml Vial IV PUSH Q2M PRN Opiate Reversal Ondansetron HCl 4 mg 06/14/22 16:06 Ondansetron Inj 4 Mg/2 Ml Vial IV PUSH Q4H PRN Nausea And Vomiting Polyethylene Glycol 17 gm 06/15/22 09:00 06/16/22 08:46 Polyethylene Glycol 3350 17 Gm Powd.Pack PO 17 gm QAM MARLEY Administration Senna/Docusate Sodium 2 tab 06/14/22 17:00 06/16/22 08:46 Se
[2022-06-16 10:00] VITALS: BP 137/77; PULSE 76; RESP 16; TEMP 37.1; O2SAT 92
[2022-06-16 12:15] LABS: EDCOVIDSCREEN Negative (Negative)
--- NOTE | 2022-06-16 12:58 | PM.DS ---
DS: Admitting Diagnosis Discharge Date 06/16/2022 Admitting Diagnosis Fall DS: Discharge Diagnosis Discharge Diagnosis (1) Closed right hip fracture: Code(s): S72.001A - Fracture of unspecified part of neck of right femur, initial encounter for closed fracture Status: Acute Assessment and Plan: Management per Orthopedic Surgery 06/15/2022 interval history: patient is 82-year-old male status post fall and fracture of right hip was seen by orthopedic surgeon had ORIF postop day 1. patient states pain with weight-bearing, seen by is orthopedic surgeon recommended patient may work with physical therapy and weight-bearing as tolerated however patient remains disoriented with dementia will continue to monitor and further recommendation to follow. (2) Fall from ground level: Code(s): W18.30XA - Fall on same level, unspecified, initial encounter Status: Acute Assessment and Plan: Physical and occupational therapy (3) Leukocytosis: Code(s): D72.829 - Elevated white blood cell count, unspecified Status: Acute Assessment and Plan: CXR with no pneumonia. Urine culture finalized negative. Afebrile. Likely reactive. Will monitor fever curve. (4) Essential (primary) hypertension: Code(s): I10 - Essential (primary) hypertension Status: Acute Assessment and Plan: BP mildly elevated and there is no home medication listed for hypertension. Per chart review, was on amlodipine 10 mg po daily in the past. Will monitor for now. (5) Hyperlipidemia: Code(s): E78.5 - Hyperlipidemia, unspecified Status: Acute Assessment and Plan: No home medication listed. Will monitor. (6) Hypothyroidism: Code(s): E03.9 - Hypothyroidism, unspecified Status: Acute Assessment and Plan: No home medication listed. Labs euthyroid. Will monitor. (7) Dementia: Code(s): F03.90 - Unspecified dementia, unspecified severity, without behavioral disturbance, psychotic disturbance, mood disturbance, and anxiety Status: Acute Assessment and Plan: Previously on donepizil. No home medicaton listed. Will monitor. DS: Summary Hospital Course Reason for hospitalization: Fall. Narrative: This is a pleasant 82-year-old male with dementia, hypertension, hyperlipidemia, hypothyroidism, and remote history of carcinoid tumor who presented to the ED via EMS for evaluation after a fall. He has significant short-term memory loss and is not able to provide an accurate history and as such some of the following is supplemented via a review of his electronic medical records as well as discussions with his son Aurelio who is at bedside, with the patient's permission. The patient lives in his own home though lives on the same property as his son and [id number], who keep an eye out for him. This morning the patient seemed to be in his usual state of health when visited by his son. About an hour later the son came back for a visit at which time he found the patient lying on the floor in the kitchen, complaining of right hip pain. The patient continues to report that he slipped on a banana peel in the kitchen which caused him to fall however no banana or peel was found anywhere in the vicinity. In the emergency department he was found to have a fracture of the right hip and he is being admitted in this setting. He also sustained a skin tear to the right forearm but no other injuries. He is not certain but does not believe that he had any head trauma and he does not believe the fall was result of loss of consciousness. At the time my evaluation he has an aching discomfort in his right hip which is tolerable as long as he is not trying to move the leg. Hospital Course: patient is 82-year-old male status post fall and fracture of right hip was seen by orthopedic surgeon had ORIF postop day 2.? patient s
[2022-06-16 13:40] VITALS: BP 132/71; PULSE 80; RESP 17; TEMP 36.4; O2SAT 96
--- NOTE | 2022-06-16 14:16 | PC.NURSE ---
On 06/16/22, the student, [Santa Shukla], provided care and completed [facility] documentation on this patient. I have reviewed the student's documentation and agree with the findings.
== END 2022-06-16 14:47 | DRG 482 ==
LOC: ANHED 14:19 → ANH2MED 15:17
PROVIDERS: Family Medicine; Orthopaedic Surgery; Physician Assistant; Admitting Provider Internal Medicine; Emergency Provider Emergency Medicine; PCP Internal Medicine; Visit Provider Family Medicine
PROC: 0QS634Z Reposition Right Upper Femur with Internal Fixation Device, Percutaneous Approach (ICD-10-PCS; principal; 2022-06-14 14:00)
DX: S72.011A Unspecified intracapsular fracture of right femur, initial encounter for closed fracture (principal); W01.0XXA Fall on same level from slipping, tripping and stumbling without subsequent striking against object, initial encounter; Z20.822 Contact with and (suspected) exposure to COVID-19; F03.90 Unspecified dementia, unspecified severity, without behavioral disturbance, psychotic disturbance, mood disturbance, and anxiety; I10 Essential (primary) hypertension; E78.5 Hyperlipidemia, unspecified; E03.9 Hypothyroidism, unspecified; D72.829 Elevated white blood cell count, unspecified; Z90.49 Acquired absence of other specified parts of digestive tract
CPT/HCPCS: 36415; 70450; 71045; 72125; 72170; 73502; 80048; 80053; 81001; 81479; 83735; 84439; 84443; 84484; 85025; 85027; 86850; 86860; 86870; 86880; 86900; 86901; 86902; 86922; 86971; 86978; 87086; 87088; 87426; 93005; 96374; 97110; 97116; 97162; 97165; 97530; 97535; 99199; 99285; A9270; C9803; J0690; J1100; J2270; J2405; J2704; J3010; J3480; J7030; J7040; J7120